=== PATIENT | male | born 1995 | race Caucasian/White ===

== ENCOUNTER → 2016-05-19 | Outpatient (CLI) | payer BC | END | disposition home or self-care (01) | LOC: C.LABSPEC 17:45 | PROVIDERS: ATTEND Podiatrist Foot & Ankle Surgery | DX: L60.0 Ingrowing nail (principal) ==

== ENCOUNTER 2016-10-10 03:05 | Emergency (ER) | payer BC ==
[~2016-10-10] VITALS: Ht 182.9 cm; Wt 92.6 kg
[2016-10-10 03:11] VITALS: TEMP 36.7; O2SAT 98; Ht 182.9 cm; Wt 92.6 kg
--- NOTE | 2016-10-10 03:26 | EMERGENCY ROOM VISIT NOTE ---
History First contact with patient: 03:07 Chief Complaint: ALCOHOL OVERDOSE Stated Complaint: ALCOHOL OVERDOSE Nursing Triage Summary: Patient arrived to ED via BLS transport. Patient was found on [address] [place] sleeping, states that he was walking home. Patient reports that he was at the [facility], drank 9-11 shots/drinks, mostly liquor. Patient denies fall or injury though presents with a small abrasion to cheek. History of Present Illness The patient is a 20 year old male who presents to the Emergency Room via BLS for evaluation of alcohol intoxication. The patient was [place] sleeping. The patient admits to drinking 9-11 shots of liquor tonight. He denies any trauma. He has no complaints at this time. He denies any drug use. Review of Systems A complete 10 point review of systems was reviewed with the patient with pertinent positives and negatives as per history of present illness. All else were negative. Social History Smoking Status: Never Smoker Current/Historical Medications No Active Prescriptions or Reported Meds Physical Exam Vital Signs Date Time Temp Pulse Resp B/P (MAP) Pulse Ox O2 Delivery O2 Flow Rate FiO2 10/10/16 08:45 77 17 132/74 98 10/10/16 06:48 72 17 95/63 96 10/10/16 06:29 75 10/10/16 06:01 68 16 115/61 96 10/10/16 05:31 86 16 96 10/10/16 05:01 71 17 124/55 95 10/10/16 05:00 72 17 124/55 95 Room Air 10/10/16 04:35 81 19 98 10/10/16 04:31 153/76 10/10/16 04:05 96 17 100 10/10/16 04:01 145/89 10/10/16 03:35 82 17 100 10/10/16 03:31 104 10/10/16 03:31 135/83 10/10/16 03:11 36.7 73 18 163/96 97 Room Air 10/10/16 03:11 98 Room Air 10/10/16 03:08 163/96 Physical Exam VITALS: Vitals are noted on the nurse's note and reviewed by myself. Vital signs stable. GENERAL: This is a 20-year-old male, lying prone in bed, appears to be visibly intoxicated, smells of ETOH. SKIN: The skin was without erythema, edema, or bruising. HEAD: Normocephalic atraumatic. EARS: External auditory canals clear. No hemotympanum. EYES: Pupils equal round and reactive to light and accommodation. NOSE: No deformities noted. MOUTH: No loose or chipped teeth. NECK: No cervical spine tenderness. HEART: Regular rate and rhythm without murmurs gallops or rubs. LUNGS: Clear to auscultation bilaterally without wheezes, rales or rhonchi. ABDOMEN: Soft, nontender. MUSCULOSKELETAL: Full range of motion throughout. Strength intact throughout. NEURO: Patient was alert and oriented to person place and time. Speech slurred. Gross sensation intact. Patient cooperative with examiner. Medical Decision & Procedures Laboratory Results 10/10/16 03:10 Test 10/10/16 03:10 Anion Gap 7.0 mmol/L (3-11) Est Creatinine Clear Calc Drug Dose 115.6 ml/min Estimated GFR () 109.9 Estimated GFR (Non- 94.8 BUN/Creatinine Ratio 7.8 (10-20) Calcium Level 8.8 mg/dl (8.5-10.1) Ethyl Alcohol mg/dL 298.0 mg/dl (0-3) Medical Decision Differential diagnosis includes alcohol intoxication, drug use, trauma, infection, hypoglycemia, among others. The patient is a 20-year-old male who presents today for evaluation of alcohol intoxication. No evidence of trauma on exam. The patient was alert and able to answer questions appropriately on arrival. His alcohol level was found to be 298. Creatinine within normal limits. The patient was monitored appropriately and when he became more sober, he was discharged home. He was encouraged not to drink anymore alcohol today and to cut down on alcohol use. He will follow-up with [facility] as needed or will return here for any new/concerning symptoms. Medication Reconcilliation Current Medication List: was personally reviewed by me Blood Pressure Screening Patient's blood pressure: Normal blood pressure Impression Primary Impression: Alcohol intoxication Departure Information Dispostion Home / Self-Care Condition GOOD Prescriptions No Active Prescriptions or Reported Meds Referrals No Doctor, Assigned (PCP) Patient Instructions My [facility] Additional Instructions You were evaluated in emergency department for intoxication. This is a sign of Alcohol Abuse and should not be taken lightly. You had a blood alcohol level that was significantly elevated. Over the next 24 hours keep well hydrated and eat light meals. Don't drink any more alcohol. This is important. Please discuss this visit with your Primary Care Provider, [facility] and/or your loved ones. Unless an exceptional circumstance, the Hospital DOES NOT contact anyone during your visit, nor is your Protected Medical Information released to anyone without your approval/request. This means we do not contact your Parents, the Police, [facility], etc. However, you will likely receive a bill from the Hospital and/or your Insurance company, which will usually be sent to the Primary Policy [place] (often one's Parents) If your incident was on campus, or if the Police were involved, they will often contact the University to make them aware of what happened. Often this will result in you being required to take Alcohol Education classes (ie BASICS class) . Please see information given to you at discharge regarding contact for this. If the Police were involved you may be cited for public intoxication. Please contact either [facility] Police or the [place] Police for further information. Call 911 or return to Emergency Department if you develop: Passing out, difficulty breathing, many episodes of vomiting, blood in vomit or stool, abdominal pain, fevers, or other severe symptoms. We are always here to help if you feel you need further evaluation or treatment. Problem Qualifiers Primary Impression: Alcohol intoxication Complication of substance-induced condition: uncomplicated Qualified Codes: F10.920 - Alcohol use, unspecified with intoxication, uncomplicated
[2016-10-10 03:38] LABS: BUN/CREATININE RATIO 7.8 (10-20); CALCIUM 8.8 mg/dl (8.5-10.1); CREATININE 1.1 mg/dl (0.60-1.40); POTASSIUM 3.7 mmol/L (3.5-5.1)
[2016-10-10 08:45] VITALS: BP 132/74; PULSE 77; O2SAT 98
== END 2016-10-10 09:07 | disposition home or self-care (01) ==
LOC: EDBD 03:05 → C.EDB 03:06
DX: F10.920 Alcohol use, unspecified with intoxication, uncomplicated (principal); Y90.8 Blood alcohol level of 240 mg/100 ml or more